=== PATIENT | female | born 2000 | race African-American/Black ===

== ENCOUNTER 2022-06-11 10:42 | Emergency (ER) | payer SELFPAY ==
[~2022-06-11] VITALS: Ht 162.6 cm; Wt 57.6 kg
--- NOTE | 2022-06-11 11:00 | NUR ---
RAPID STRIP SENT TO LAB
--- NOTE | 2022-06-11 11:00 | NUR ---
RECEVED PT 21 YRS FEMALE FROM HOME C/O SORE THROAT AND LT EAR PAIN FOR 2 DAYS
--- NOTE | 2022-06-11 12:19 | NUR ---
WATING FOR RESULT OF SWAP
--- NOTE | 2022-06-11 13:15 | NUR ---
Patient discharged to home in stable condition. Written and verbal after care instructions given. Patient verbalizes understanding of instruction.
[2022-06-11 13:20] VITALS: BP 113/64
== END 2022-06-11 13:22 | disposition home or self-care (01) ==
LOC: ER 10:44
DX: J02.9 Acute pharyngitis, unspecified (principal)
CPT/HCPCS: 86403-TC